=== PATIENT | male | born 1965 | race Caucasian/White ===

== ENCOUNTER → 2021-06-14 | Outpatient (CLI) | payer BC ==
--- NOTE | 2021-06-15 01:49 | MR ---
EXAMINATION TYPE: MR cervical spine wo con DATE OF EXAM: 06/14/2021 COMPARISON: None HISTORY: Headaches. Neck pain that radiates down both arms to hands and fingers. Numbness and weaknes s in hands. The cervical vertebra have normal alignment. Disc spaces are fairly normal. There is no compression f racture. There are small posterior disc bulging at C5-6 and C6-7. Cervical spinal cord has normal sig nal pattern. There is no edema. Brainstem appears intact. Cerebellum is intact. There is no spinal st enosis. 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 IMPRESSION: Small posterior disc herniations at C5-6 and C6-7. No spinal stenosis.
== END | disposition home or self-care (01) ==
LOC: RADMRIMAIN 20:26
PROVIDERS: ATTEND Family Medicine
DX: M50.123 Cervical disc disorder at C6-C7 level with radiculopathy (principal)
CPT/HCPCS: 72141